=== PATIENT | female | born 1985 | race Caucasian/White ===

== ENCOUNTER 2018-05-29 21:01 | Outpatient (CLI) | payer BC ==
[~2018-05-29] VITALS: Ht 167.6 cm; Wt 60.9 kg
[2018-05-29 21:00] VITALS: BP 113/74; PULSE 73; RESP 20; Ht 167.6 cm; Wt 60.9 kg
[2018-05-29] MEDS ORDERED: ACETAMINOPHEN 325 MG TAB PO PRN (22:00)
[2018-05-29] MEDS ORDERED: PREN-93 PO (22:26)
[2018-05-30] MEDS ORDERED: PRENATAL VITAMIN PO SCH (09:00)
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
== END 2018-05-29 23:39 | disposition home or self-care (01) ==
LOC: OBT 21:01 → L-D 21:05 → OBT 21:33 → UNDOADMIN 21:33 → L-D 22:27
PROVIDERS: ATTEND Obstetrics & Gynecology
DX: O9A.213 Injury, poisoning and certain other consequences of external causes complicating pregnancy, third trimester (principal); Z3A.38 38 weeks gestation of pregnancy; R10.2 Pelvic and perineal pain; V43.62XD Car passenger injured in collision with other type car in traffic accident, subsequent encounter
CPT/HCPCS: 76818; 85025; 86850; 86900; 86901; G0463